=== PATIENT | female | born 1980 | race American Indian/Alaskan Native ===

== ENCOUNTER 2016-12-29 10:03 | Emergency (ER) | payer OTHER ==
[2016-12-29 10:04] VITALS: BMI 27.3
[2016-12-29 10:16] VITALS: BP 139/87; PULSE 75; RESP 19; TEMP 98.2; O2SAT 95
--- NOTE | 2016-12-29 11:32 | ED PDOC ---
Arrival/HPI - General Chief Complaint: Lower Extremity Problem/Injury Time Seen by Provider: 12/29/16 10:41 Historian: Patient - History of Present Illness Narrative History of Present Illness (Text): 12/29/16 11:20 36yr old female presents today with left leg pain. pt states that she woke up 1 week ago with left calf pain. pt states for the past week she has had continued pain which she describes as a cramping pain to the posterior calf that is now radiating up the leg. She denies numbness weakness or tingling in the extremity. Denies any recent trauma or injury. Denies fevers or chills. Patient denies chest pain or shortness of breath. Denies back pain. Denies bladder or bowel incontinence. States she has been intermittently taking Motrin for pain. Time/Duration: 1 week Symptom Onset: Gradual Symptom Course: Worsening Quality: Aching, Cramping Severity Level: 5 Past Medical History - Provider Review Nursing Documentation Reviewed: Yes - Travel History Have you recently traveled outside [place] w/in the past 3 mons?: No - Past History Past History: No Previous - Infectious Disease Hx of Infectious Diseases: None - Tetanus Immunization Tetanus Immunization: Unknown - Past Medical History Past Medical History: No Previous - Pulmonary Hx Asthma: No Hx Bronchitis: No - Psychiatric Hx Substance Use: No - Anesthesia Hx Anesthesia: No Hx Anesthesia Reactions: No Hx Malignant Hyperthermia: No Family/Social History - Physician Review Nursing Documentation Reviewed: Yes Family/Social History: Unknown Family HX Smoking Status: Current Some Days Smoker Hx Alcohol Use: Yes Frequency of alcohol use: Socially Hx Substance Use: No Allergies/Home Meds Allergies/Adverse Reactions: Allergies No Known Allergies Allergy (Verified 12/29/16 10:15) Review of Systems - Review of Systems Constitutional: absent: Fatigue, Fevers Respiratory: absent: SOB, Cough Cardiovascular: absent: Chest Pain, Palpitations Gastrointestinal: absent: Abdominal Pain, Nausea, Vomiting Musculoskeletal: Arthralgias. absent: Back Pain, Neck Pain Skin: absent: Rash, Pruritis Neurological: absent: Headache, Dizziness Psychiatric: absent: Anxiety, Depression Physical Exam Vital Signs Reviewed: Yes Vital Signs Temp Pulse Resp BP Pulse Ox 12/29/16 10:10 98.2 F 75 19 139/87 95 Temperature: Afebrile Blood Pressure: Normal Pulse: Regular Respiratory Rate: Normal Appearance: Positive for: Well-Appearing, Non-Toxic, Comfortable Pain Distress: None Mental Status: Positive for: Alert and Oriented X 3 - Systems Exam Head: Present: Atraumatic Mouth: Present: Moist Mucous Membranes Respiratory/Chest: Present: Clear to Auscultation Cardiovascular: Present: Regular Rate and Rhythm Lower Extremity: Present: Normal Inspection, CALF TENDERNESS, NORMAL PULSES, Normal ROM, Tenderness, Neurovascularly Intact, Capillary Refill < 2 s. No: Swelling, Erythema, Deformity, Temperature Abnormalties Neurological: Present: GCS=15, Speech Normal Skin: Present: Warm, Dry, Normal Color. No: Rashes Psychiatric: Present: Alert, Oriented x 3 Medical Decision Making ED Course and Treatment: 12/29/16 11:32 Patient is nontoxic well-appearing in no distress with stable vital signs lungs are clear to auscultation bilaterally. pt with left leg pain and cramping x 1 week. no trauma or injury. Venous duplex of the left leg; no DVT verbal report by mining technician toradol given IM Patient reassessment; patient is nontoxic well-appearing in no distress with stable vital signs jamari wrap applied. crutches given for ambulation. I discussed the results with patient about followup with a primary care physician within the next 2 days as well as the orthopedist. I've advised return if symptoms worsen persist or if there's concerning symptoms develop. Patient verbalizes understanding of discharge instructions and need for immediate followup. all aspects of this case were discussed the attending of record. Impression: Leg pain, Motrin every 6 hours as needed for pain Tramadol one tablet every 6 hours as needed for moderate to severe pain: May cause drowsiness Followup primary care physician within the next 2 days Follow up with the orthopedist within the next 2 days Return if symptoms worsen persist or if new symptoms develop - RAD Interpretation Radiology Orders: 12/29/16 10:46 DUPLEX LOWER EXTRM VEIN LEFT [US] Stat - Medication Orders Current Medication Orders: Discontinued Medications Ketorolac Tromethamine (Toradol) 60 mg IM STAT STA Stop: 12/29/16 10:47 Last Admin: 12/29/16 11:17 Dose: 60 mg Disposition/Present on Arrival - Present on Arrival Any Indicators Present on Arrival: No History of DVT/PE: No History of Uncontrolled Diabetes: No Urinary Catheter: No History of Decub. Ulcer: No History Surgical Site Infection Following: None - Disposition Have Diagnosis and Disposition been Completed?: Yes Diagnosis: Leg pain Disposition: HOME/ ROUTINE Disposition Time: 12:46 Patient Plan: Discharge Patient Problems: Current Active Problems Problem Status Onset Leg pain Acute Condition: GOOD Discharge Instructions (ExitCare): Leg Pain (ED) Additional Instructions: Motrin every 6 hours as needed for pain Tramadol one tablet every 6 hours as needed for moderate to severe pain: May cause drowsiness Followup primary care physician within the next 2 days Follow up with the orthopedist within the next 2 days Return if symptoms worsen persist or if new symptoms develop Prescriptions: Ibuprofen [Motrin] 600 mg PO Q6H PRN #20 tab PRN Reason: pain/fever reduction traMADol [Ultram] 50 mg PO Q6H PRN #6 tab PRN Reason: moderate to severe pain Referrals: Bety Sánchez DO [Primary Care Provider] - Follow up with primary Brady White MD [Staff Provider] - Follow up with primary Forms: [employer] (Mongolian), WORK NOTE
--- NOTE | 2016-12-29 13:18 | US ---
PROCEDURE: Left lower extremity venous US HISTORY: Leg pain and swelling. Evaluate for DVT. PHYSICIAN(S): Chrisitano Puckett MD. TECHNIQUE: Duplex sonography and color-flow Doppler with graded compression were used to evaluate the deep venous system of the left lower extremity. FINDINGS: The visualized deep venous system of the left lower extremity is sonographically normal and compressible. Normal wave forms and augmentation are seen. There is no sonographic evidence for deep venous thrombosis in the visualized segments of the left lower extremity. IMPRESSION: 1. No sonographic evidence for deep venous thrombosis in the visualized segments of the left lower extremity.
== END 2016-12-29 13:05 | disposition home or self-care (01) ==
LOC: ED 10:03
DX: M79.605 Pain in left leg (principal)
CPT/HCPCS: 93971; 96372; 99283; J1885